=== PATIENT | female | born 1965 | race Caucasian/White ===

== ENCOUNTER → 2019-11-18 | Outpatient (CLI) | payer BC ==
--- NOTE | 2019-11-18 16:16 | US ---
EXAMINATION TYPE: US venous doppler duplex LE RT DATE OF EXAM: 11/18/2019 3:43 PM COMPARISON: NONE CLINICAL HISTORY: R60.0 Localized edema. SIDE PERFORMED: TECHNIQUE: The lower extremity deep venous system is examined utilizing real time linear array sonog neena with graded compression, doppler sonography and color-flow sonography. VESSELS IMAGED: External Iliac Vein (EIV) Common Femoral Vein Deep Femoral Vein Greater Saphenous Vein * Femoral Vein Popliteal Vein Small Saphenous Vein * Proximal Calf Veins (* superficial vessels) There is normal flow, compressibility, vascular waveforms Right Leg: Negative for DVT Soria's cyst measuring 4.7 x 1.8 x 3.0cm IMPRESSION: No evident deep venous arthrosis at or above the right knee. Semimembranosus gastrocnemiu s cyst noted incidentally.
== END | disposition home or self-care (01) ==
LOC: RADUSWWP 15:22
PROVIDERS: ATTEND Family Medicine
DX: R60.0 Localized edema (principal)

== ENCOUNTER 2020-07-15 09:17 | Day surgery (SDC) | payer BC, OTHER ==
[2020-07-14 11:52] VITALS: BMI 21.4
[~2020-07-15 09:17] MED LIST: ACETAMINOPHEN TAB 500 MG TAB PO PRN; LACTATED RINGERS 1,000 ML IV SCH; MELOXICAM 7.5 MG TAB PO PRN; ONDANSETRON 4 MG/2 ML VIAL IVP PRN; Pre Op ABX Message 1 EACH MISC MISCELLANE ONE
[2020-07-15 10:05] VITALS: RESP 16
[2020-07-15] MEDS ORDERED: MIDAZOLAM 2 MG/2 ML VIAL IVP ONE (10:20)
[2020-07-15] MEDS ORDERED: DEXAMETHASONE SOD PHOSPHATE 4 MG/ML 1 ML VIAL IVP ONE (10:20)
[2020-07-15] MEDS ORDERED: MIDAZOLAM 2 MG/2 ML VIAL ONE (10:29)
[2020-07-15] MEDS ORDERED: SUCCINYLCHOLINE CHLORIDE 100 MG/5 ML SYR IV ONE (10:29)
[2020-07-15] MEDS ORDERED: PROPOFOL 10 MG/ML 20 ML VIAL IV ONE (10:29)
[2020-07-15] MEDS ORDERED: GLYCOPYRROLATE 0.2 MG/ML 2 ML VIAL ONE (10:29)
[2020-07-15] MEDS ORDERED: LIDOCAINE 1% INJ 10MG/ML (20 ML MDV) ONE (10:29)
[2020-07-15] MEDS ORDERED: ePHEDrine SULFATE/0.9% NACL/PF 50 MG/5 ML SYRINGE IV ONE (10:29)
[2020-07-15] MEDS ORDERED: fentaNYL (PF) 50 MCG/ML 2 ML AMP ONE (10:29)
[2020-07-15] MEDS ORDERED: BUPIVACAINE (PF) 0.25% 30 ML VIAL INTRAARTIC ONE (11:09)
[2020-07-15 11:31] VITALS: TEMP 97
[2020-07-15] MEDS ORDERED: MEPERIDINE 50 MG/ML SYRINGE IVP ONE ×2 (12:08→12:14)
--- NOTE | 2020-07-15 12:18 | OP ---
OPERATIVE REPORT DATE OF PROCEDURE: 07/15/2020. PREOPERATIVE DIAGNOSIS: Right knee posterior horn medial meniscus tear. POSTOPERATIVE DIAGNOSIS: Right knee posterior horn medial meniscus tear. OPERATION: Right arthroscopic partial medial meniscectomy. SURGEON: Aren Robison MD. ANESTHESIA: General endotracheal. ESTIMATED BLOOD LOSS: Minimal. TOURNIQUET: None. DRAINS: None. COMPLICATIONS: None apparent. DISPOSITION: Postanesthesia care unit. INDICATIONS: Best is a 54-year-old female who injured her right knee. Physical examination and MRI are consistent with tearing of the posterior horn of the medial meniscus. I had a long discussion with her with regard to treatment options. At this point, she does wish to proceed with operative intervention. Risks were explained to the patient which include, but are not limited to risk of infection, nerve damage, bleeding, pain, and a small risk of deep vein thrombosis which could lead to fatal pulmonary embolism. The patient understands these risks and wished to proceed with surgical procedure. EXAMINATION UNDER ANESTHESIA: Range of motion: Right full, left full. Effusion: Right mild, left none. Dmitry: Right normal with good endpoint; left normal with good endpoint. Pivot shift: Right grade 0, left grade 0. Posterior drawer: Right with good endpoint; left normal with good end point. Varus laxity: Right none, left none. Valgus laxity: Right none, left none. External rotation: Right normal, left normal. ARTHROSCOPIC FINDINGS: Suprapatellar pouch was normal. Medial gutter normal. Lateral gutter normal. Patella, grade 1 change in the central aspect of the patella. The trochlea she had a grade 2 change in the central aspect of the trochlea. Medial femoral condyle diffuse grade 2 change. Medial tibial plateau grade 1 change. Medial meniscus complex tear of the posterior horn of the medial meniscus. Lateral femoral condyle normal chondral surfaces. Lateral tibial plateau grade 1 change. Lateral meniscus was normal. Anterior cruciate ligament normal. Posterior cruciate ligament normal. DETAILS OF THE PROCEDURE: The patient identified in preoperative holding area. Surgical site was marked by both the patient and myself. She was given 2 grams of Ancef IV for prophylactic purposes. She was then transported to the operative suite. She was placed supine on the operating room table. A general anesthetic was then administered, dosed per the anesthesia department without apparent complication. Examination under anesthesia was then performed of both knees. The findings are noted as above. Tourniquet was then placed high on the right upper thigh well-padded in preparation for surgery. The tourniquet was not inflated throughout the entire procedure. The patient's right lower extremity was than prepped and draped in usual sterile fashion. Standard surgical pause was undertaken to ensure that we were operating on the correct site and that appropriate preoperative antibiotics had been given. All staff in the room were in agreement and we proceeded. The knee was then insufflated with 120 mL sterile saline solution. This was done to gradually distend the joint. Standard inferolateral portal was then made. A 30-degree arthroscope was inserted into superior pouch. The arthroscopic pump pressure set to 60 mmHg and maintained at that level throughout the entire case. Utilizing an 18-gauge spinal needle topically localize the placement, the inferomedial port was made under direct visualization. A standard diagnostic arthroscopy of the knee was then performed. The findings were noted as above. Attention drawn to the medial compartment. She had a complex tear of the posterior horn of the medial meniscus. It was a radial tear with macerated flap tear component to it as well. This tear was deemed irreparable. The meniscus tear was then debrided with a combination of biters and synovial shaver back to stable tissue. Approximately 50% of the posterior horn of medial meniscus remained intact after debridement. The arthroscope was then placed medial to the posterior cruciate ligament through the notch posteromedial compartment of the knee. The posterior root was carefully inspected. She did have a radial tear that extended to the red-white junction, but the root was intact. At this point in time, no further work was seemed necessary. The knee was thoroughly irrigated and drained with an outflow cannula. The arthroscopic equipment was removed from the knee. The arthroscopic portals were closed with 3-0 nylon interrupted sutures. Sterile compressive dressing was then applied. All sponge and needle counts were deemed correct prior to closure. The patient tolerated the procedure without apparent complication. The tourniquet was not inflated throughout the entire procedure. She was transferred to the recovery room in stable condition. MMODL / IJN: [id number] /
[2020-07-15] MEDS ORDERED: HYDROcodone/APAP 5-325MG 1 EACH TAB ONE (12:55)
[2020-07-15 13:20] VITALS: BP 150/91; PULSE 57
== END 2020-07-15 13:52 | disposition home or self-care (01) ==
LOC: OR 09:17
PROVIDERS: ATTEND Orthopaedic Surgery Sports Medicine
DX: S83.231A Complex tear of medial meniscus, current injury, right knee, initial encounter (principal); M71.21 Synovial cyst of popliteal space [Baker], right knee; M17.11 Unilateral primary osteoarthritis, right knee; I10 Essential (primary) hypertension; F32.9 Major depressive disorder, single episode, unspecified; F17.210 Nicotine dependence, cigarettes, uncomplicated; Z86.69 Personal history of other diseases of the nervous system and sense organs; Z98.890 Other specified postprocedural states; Z86.018 Personal history of other benign neoplasm; Z79.899 Other long term (current) drug therapy; Z79.1 Long term (current) use of non-steroidal anti-inflammatories (NSAID); Z82.49 Family history of ischemic heart disease and other diseases of the circulatory system; X58.XXXA Exposure to other specified factors, initial encounter; Y93.H1 Activity, digging, shoveling and raking
CPT/HCPCS: 29881; J2250; J1100; J2175; J0690; J2405; J2001; J3010; J0330; J2704

== ENCOUNTER → 2020-09-16 | Outpatient (CLI) | payer OTHER ==
--- NOTE | 2020-09-16 11:12 | XR ---
Lumbar spine HISTORY: Low back pain 3 views lumbar spine There is a levoscoliosis centered at L3. Lumbar vertebral bodies show preserved height. Bone minerali zation is reduced. Alignment is maintained. Loss of disc height is present at intervertebral levels L 3-4 and L4-5, L5-S1. There is associated spondylosis. Sclerosis present in the posterior elements of the lower lumbar spine. Dense atherosclerotic vascular calcifications present within the aorta. IMPRESSION: Degenerative disc disease, facet arthropathy, spinal curvature, osteopenia.
== END | disposition home or self-care (01) ==
LOC: RADXRMAIN 09:40
PROVIDERS: ATTEND Family Medicine
DX: M51.36 Other intervertebral disc degeneration, lumbar region (principal); M47.816 Spondylosis without myelopathy or radiculopathy, lumbar region; M43.8X6 Other specified deforming dorsopathies, lumbar region; M85.88 Other specified disorders of bone density and structure, other site
CPT/HCPCS: 72100

== ENCOUNTER → 2020-10-08 | Outpatient (CLI) | payer OTHER | END | disposition home or self-care (01) | LOC: LABWHC1 13:18 | PROVIDERS: ATTEND Psychiatry & Neurology Neurology | DX: G40.009 Localization-related (focal) (partial) idiopathic epilepsy and epileptic syndromes with seizures of localized onset, not intractable, without status epilepticus (principal) | CPT/HCPCS: 36415; 80177 ==

== ENCOUNTER 2022-10-03 13:59 | Observation (INO) | payer OTHER ==
--- NOTE | 2022-10-03 14:34 | ED ---
General Adult HPI - General Source: RN notes reviewed <Lakisha Patterson - Last Filed: 10/03/22 14:33> - General Source: patient, family, RN notes reviewed Limitations: no limitations <Len Jean Baptiste - Last Filed: 10/03/22 16:20> - General Stated complaint: seizure Time Seen by Provider: 10/03/22 14:33 - History of Present Illness Initial comments: 56-year-old female with a past medical history significant for seizures presents to the emergency department with a chief complaint of seizure. Patient reports she had a seizure at approximately 1250 this afternoon. She reports that that she seizure lasted about 30 minutes. She takes Keppra. She did take her medication today (Lakisha Patterson) Patient is a pleasant 66-year-old female presenting to the emergency department following reported seizure. Mother witnessed seizure. This reportedly lasted around 20 minutes. Patient states she does take her Keppra however occasionally misses the evening dose, possibly a quarter of the time. Patient rarely ever misses her morning dose. Patient complains of mild headache and general achiness right now. Patient did feel a little bit confused earlier however that has mostly resolved. Patient did bite her tongue otherwise no trauma. 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 <Lakisha Patterson - Last Filed: 10/03/22 14:33> ROS Other: All systems not noted in ROS Statement are negative. Constitutional: Denies: fever Eyes: Denies: eye pain ENT: Denies: ear pain Respiratory: Denies: cough Cardiovascular: Denies: chest pain Endocrine: Denies: fatigue Gastrointestinal: Denies: abdominal pain Genitourinary: Denies: urgency Neurological: Reports: as per HPI, headache. Denies: weakness <Len Jean Baptiste Last Filed: 10/03/22 16:20> ROS Statement: Those systems with pertinent positive or pertinent negative responses have been documented in the HPI. 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, LYMPH NODE REMOVED FROM ARM AND ARM PIT, Past Anesthesia/Blood Transfusion Reactions: No Reported Reaction, Motion Sickness Smoking Status: Current every day smoker - Past Family History Mother Family Medical History: No Reported History <Lakisha Patterson - Last Filed: 10/03/22 14:33> General Exam <Lakisha Patterson - Last Filed: 10/03/22 14:33> Limitations: no limitations General appearance: alert, in no apparent distress Head exam: Present: atraumatic Eye exam: Present: normal appearance, PERRL, EOMI ENT exam: Present: normal oropharynx Neck exam: Present: normal inspection Respiratory exam: Present: normal lung sounds bilaterally Cardiovascular Exam: Present: regular rate, normal rhythm GI/Abdominal exam: Present: soft. Absent: tenderness Extremities exam: Present: normal inspection Neurological exam: Present: alert, oriented X3, CN II-XII intact. Absent: motor sensory deficit Psychiatric exam: Present: normal affect, normal mood Skin exam: Present: normal color <Len Jean Baptiste Last Filed: 10/03/22 16:20> - General Exam Comments Initial Comments: Visual Physical Exam Vital signs reviewed General: Well-appearing, nontoxic, no acute distress. Head: Normocephalic, atraumatic Eyes: PERRLA, EOMI ENT: Airway patent Chest: Nonlabored breathing Skin: No visual rash, normal skin tone Neuro: Alert and oriented 3 Musculoskeletal: No gross abnormalities (Lakisha Patterson) Course Vital Signs 10/03/22 10/03/22 14:39 15:31 Temperature 98.2 F Pulse Rate 72 58 L Respiratory 20 18 Rate Blood Pressure 179/100 190/105 O2 Sat by Pulse 97 Oximetry EKG Findings - EKG Results: EKG: interpreted by ERMD, sinus rhythm, normal axis, normal QRS, normal ST/T EKG shows: bradycardia <Len Jean Baptiste Last Filed: 10/03/22 16:20> Medical Decision Making - Lab Data Result diagrams: 10/03/22 15:24 10/03/22 15:24 <Len Jean Baptiste - Last Filed: 10/03/22 16:20> - Medical Decision Making Was pt. sent in by a medical professional or institution (, [facility], [facility], urgent care, hospital, or [facility]...) When possible be specific @ -No Did you speak to anyone other than the patient for history (EMS, parent, family, police, friend...)? What history was obtained from this source @ -Family is present and helps right history including duration of seizure and last seizure being around 5 months ago Did you review nursing and triage notes (agree or disagree)? Why? @ -I reviewed and agree with nursing and triage notes Were old charts reviewed (outside hosp., previous admission, EMS record, old EKG, old radiological studies, urgent care reports/EKG's, [facility] records)? Report findings @ -Unable to find recent CT brain Differential Diagnosis (chest pain, altered mental status, abdominal pain women, abdominal pain men, vaginal bleeding, weakness, fever, dyspnea, syncope, head ache, dizziness, GI bleed, back pain, seizure, CVA, palpatations, mental health)? @ -Differential Seizure: Recurrent seizure disorder, febrile seizure, alcohol withdrawal, stimulants, meningitis, encephalitis, intercranial hemorrhage, intracranial tumor, stroke, eclampsia, thyrotoxicosis, hypocalcemia, hyponatremia, hypernatremia, hypomagnesemia, psychogenic, this is not meant to be an all-inclusive list. EKG interpreted by me (3pts min.). @ -As above X-rays interpreted by me (1pt min.). @ -None done CT interpreted by me (1pt min.). @ -Report reviewed U/S interpreted by me (1pt. min.). @ -None done What testing was considered but not performed or refused? (CT, X-rays, U/S, labs)? Why? @ -None What meds were considered but not given or refused? Why? @ -None Did you discuss the management of the patient with other professionals (professionals i.e. [facility], [facility], lab, RT, psych nurse, nursing home social worker, aligning inspector, teacher, helicopter officer, field nurse case manager)? Give summary @ -Case was discussed with Dr. Chavez, who will admit covering Dr. Rebolledo Was smoking cessation discussed for >3mins.? @ -No Was critical care preformed (if so, how long)? @ -No Were there social determinants of health that impacted care today? How? (Homelessness, low income, unemployed, alcoholism, drug addiction, transportation, low edu. Level, literacy, decrease access to med. care, custodial, rehab)? @ -No Was there de-escalation of care discussed even if they declined (Discuss DNR or withdrawal of care, Hospice)? DNR status @ -No What co-morbidities impacted this encounter? (DM, HTN, Smoking, COPD, CAD, Cancer, CVA, ARF, Chemo, Hep., AIDS, mental health diagnosis, sleep apnea, morbid obesity)? @ -None Was patient admitted / discharged? Hospital course, mention meds given and route, prescriptions, significant lab abnormalities, going to OR and other pertinent info. @ -Patient reevaluated and resting comfortably in bed. Patient is provided IV Keppra. Secondary to long duration of seizure patient will be held for neurology evaluation. The level has been drawn however this is a send out Undiagnosed new problem with uncertain prognosis? @ -No Drug Therapy requiring intensive monitoring for toxicity (Heparin, Nitro, Insulin, Cardizem)? @ -No Were any procedures done? @ -No Diagnosis/symptom? @ -Status epileptic Acute, or Chronic, or Acute on Chronic? @ -Acute Uncomplicated (without systemic symptoms) or Complicated (systemic symptoms)? @ -default Side effects of treatment? @ -No Exacerbation, Progression, or Severe Exacerbation? @ -No Poses a threat to life or bodily function? How? (Chest pain, USA, ND, pneumonia, PE, COPD, DKA, ARF, appy, cholecystitis, CVA, Diverticulitis, Homicidal, Suicidal, threat to staff... and all critical care pts) @ -No (Len Jean Baptiste) - Lab Data Lab Results 10/03/22 10/03/22 10/03/22 Range/Units 15:24 15:24 15:24 WBC 5.1 (3.8-10.6) k/uL RBC 5.01 (3.80-5.40) m/uL Hgb 16.3 H (11.4-16.0) gm/dL Hct 49.7 H (34.0-46.0) % MCV 99.1 (80.0-100.0) fL MCH 32.5 (25.0-35.0) pg MCHC 32.8 (31.0-37.0) g/dL RDW 12.6 (11.5-15.5) % Plt Count 299 (150-450) k/uL MPV 7.1 Neutrophils % 79 % Lymphocytes % 13 % Monocytes % 6 % Eosinophils % 1 % Basophils % 1 % Neutrophils # 4.0 (1.3-7.7) k/uL Lymphocytes # 0.7 L (1.0-4.8) k/uL Monocytes # 0.3 (0-1.0) k/uL Eosinophils # 0.0 (0-0.7) k/uL Basophils # 0.0 (0-0.2) k/uL Sodium 135 L (137-145) mmol/L Potassium 4.5 (3.5-5.1) mmol/L Chloride 102 (98-107) mmol/L Carbon Dioxide 28 (22-30) mmol/L Anion Gap 5 mmol/L BUN 11 (7-17) mg/dL Creatinine 0.79 (0.52-1.04) mg/dL Est GFR (CKD-EPI)AfAm >90 (>60 ml/min/1.73 sqM) Est GFR (CKD-EPI)NonAf 85 (>60 ml/min/1.73 sqM) Glucose 107 H (74-99) mg/dL Plasma Lactic Acid Ziyad 0.9 (0.7-2.0) mmol/L Calcium 9.6 (8.4-10.2) mg/dL Total Bilirubin 0.6 (0.2-1.3) mg/dL AST 74 H (14-36) U/L ALT 92 H (4-34) U/L Alkaline Phosphatase 83 (38-126) U/L Total Protein 7.3 (6.3-8.2) g/dL Albumin 4.4 (3.5-5.0) g/dL Disposition <Lakisha Patterson - Last Filed: 10/03/22 14:33> Is patient prescribed a controlled substance at d/c from ED?: No Time of Disposition: 16:20 <Len Jean Baptiste - Last Filed: 10/03/22 16:20> Clinical Impression: Status epilepticus Disposition: ADMITTED IP TO THIS [facility] Instructions (If sedation given, give patient instructions): Seizure/Epilepsy Discharge Instructions & Follow-Up Referrals: Hyun Leblanc MD [Primary Care Provider] - 1-2 days
[2022-10-03] MEDS ORDERED: ACETAMINOPHEN IV (For NPO) 1,000 MG in EMPTY BAG 1 BAG IVPB STA (15:18)
[2022-10-03] MEDS ORDERED: levETIRAcetam IV 1,000 MG in SODIUM CHLORIDE 0.9% 250 ML IVPB ONE (15:18)
[2022-10-03] MEDS ORDERED: levETIRAcetam IV 500 MG/5 ML VIAL IV STA (15:20)
--- NOTE | 2022-10-03 15:36 | CT ---
EXAMINATION TYPE: CT brain madelin cerna con DATE OF EXAM: 10/03/2022 COMPARISON: None HISTORY: 56-year-old female seizure with fall CT DLP: 1381.4 mGycm Automated exposure control for dose reduction was used. Technique: Examination of the head was done in axial plane without intravenous contrast. Coronal and sagittal reconstructions performed. CT of the cervical spine was obtained in axial plane without intravenous injection of contrast mater ial. Coronal and sagittal reformatted images were obtained from the axial views for evaluation of f ractures, spinal alignment and canal. FINDINGS: Head: There is no evidence of acute intracranial hemorrhage, acute ischemic changes, mass, mass-effect, or extra-axial fluid collection. There is no effacement of cerebral sulci or basal subarachnoid cister ns. There is no hydrocephalus. There is no midline shift. Mueller-white matter distinction is preserv ed. Paranasal sinuses and mastoid air cells well pneumatized. Leftward nasal septal deviation. Orbits and globes are intact. Cervical spine: No craniocervical junction abnormality, predental space widening, or prevertebral soft tissue swellin g. Moderate multilevel spondylotic changes present. Bulky anterior endplate spondylosis mid to lower lum bar spine. Posterior disc bulges and disc osteophyte complexes and facet C4-C5, C5-C6, C6-C7 may contribute to m ild to moderate spinal canal stenosis. No acute fracture seen of the cervical spine. Alignment is maintained. Variable mild to moderate bilateral neuroforaminal stenoses. More moderate to severe on the right at C5-C6 and on the left at C6-C7. Visualized upper lung show underlying emphysematous change. Sagittal and coronal reformatted images confirm above findings. COMBINED IMPRESSION: 1. No acute intracranial abnormality seen. 2. No acute fracture or malalignment of the cervical spine. Moderate multilevel spondylotic change as outlined above. 3. COPD in the visualized upper lungs.
[2022-10-03 15:51] LABS: Basophils % (A) 1 %; Eosinophils % (A) 1 %; HCT 49.7 % (34.0-46.0); HGB 16.3 gm/dL (11.4-16.0); Lymphocytes # (A) 0.7 k/uL (1.0-4.8); Lymphocytes % (A) 13 %; MCH 32.5 pg (25.0-35.0); MCHC 32.8 g/dL (31.0-37.0); MCV 99.1 fL (80.0-100.0); Mean Platelet Volume 7.1; Monocytes # (A) 0.3 k/uL (0-1.0); Monocytes % (A) 6 %; Neutrophils % (A) 79 %; Platelet Count 299 k/uL (150-450); RBC 5.01 m/uL (3.80-5.40); RDW 12.6 % (11.5-15.5); WBC 5.1 k/uL (3.8-10.6)
[2022-10-03 16:02] LABS: ALT 92 U/L (4-34); AST 74 U/L (14-36); African American GFR (CKD) >90 (>60 ml/min/1.73 sqM); Albumin 4.4 g/dL (3.5-5.0); Alkaline Phosphatase 83 U/L (38-126); Anion Gap 5 mmol/L; Blood Urea Nitrogen 11 mg/dL (7-17); Calcium 9.6 mg/dL (8.4-10.2); Carbon Dioxide 28 mmol/L (22-30); Chloride 102 mmol/L (98-107); Glucose 107 mg/dL (74-99); Non-African American GFR(CKD) 85 (>60 ml/min/1.73 sqM); Potassium 4.5 mmol/L (3.5-5.1); Sodium 135 mmol/L (137-145); Total Bilirubin 0.6 mg/dL (0.2-1.3); Total Protein 7.3 g/dL (6.3-8.2)
[2022-10-03] MEDS ORDERED: NALOXONE 0.4 MG/ML 1 ML VIAL IV PRN (16:20)
[2022-10-03] MEDS ORDERED: traMADol 50 MG TAB PO PRN (16:20)
[2022-10-03] MEDS ORDERED: ACETAMINOPHEN TAB 325 MG TAB PO PRN (16:20)
[2022-10-03] MEDS ORDERED: LORazepam 2 MG/ML INJ IV PRN (16:22)
[2022-10-03] MEDS: levETIRAcetam 500 MG TAB PO SCH (21:25)
[2022-10-03 23:04] VITALS: RESP 16
[2022-10-04 02:52] VITALS: TEMP 97.8
[2022-10-04] MEDS ORDERED: LEVOTHYROXINE 25 MCG TAB PO SCH (06:30)
[2022-10-04] MEDS: levETIRAcetam 500 MG TAB PO SCH (08:21)
[2022-10-04 08:30] VITALS: BP 175/90; PULSE 56
[2022-10-04] MEDS ORDERED: lisinopriL 10 MG TAB PO SCH (09:00)
[2022-10-04 10:56] LABS: ALT 71 U/L (4-34); AST 50 U/L (14-36); African American GFR (CKD) >90 (>60 ml/min/1.73 sqM); Albumin 3.9 g/dL (3.5-5.0); Albumin/Globulin Ratio 1.4; Alkaline Phosphatase 75 U/L (38-126); Anion Gap 6 mmol/L; Blood Urea Nitrogen 11 mg/dL (7-17); Calcium 8.7 mg/dL (8.4-10.2); Carbon Dioxide 24 mmol/L (22-30); Chloride 103 mmol/L (98-107); Globulin 2.7 g/dL; Glucose 86 mg/dL (74-99); Non-African American GFR(CKD) 87 (>60 ml/min/1.73 sqM); Potassium 4.1 mmol/L (3.5-5.1); Sodium 133 mmol/L (137-145); Total Bilirubin 1.1 mg/dL (0.2-1.3); Total Protein 6.6 g/dL (6.3-8.2)
--- NOTE | 2022-10-04 11:15 | P.HPIM ---
History of Present Illness 56-year-old female presented with complaints of seizure which is basically a chronic activity the whole episode lasted for 15 minutes and patient evidently had been biting. Patient does take At home has not been complaint and has mi ssed many doses of Keppra recently patient XL 50 mg of Keppra twice a day. Patient was evaluated by neurology and they recommended increasing Keppra dose to thousand twice a day. Patient although didn't have any anion gap possibly didn't have any lactic acidosis. Patient appears to have depression for which patient is to follow up with psychiatry as an outpatient. He shouldn't had a history of tumor that was removed in the past. REVIEW OF SYSTEMS: CONSTITUTIONAL: No fever, no malaise, no fatigue. HEENT: No recent visual problems or hearing problems. Denied any sore throat. CARDIOVASCULAR: No chest pain, orthopnea, PND, no palpitations, no syncope. PULMONARY: No shortness of breath, no cough, no hemoptysis. GASTROINTESTINAL: No diarrhea, no nausea, no vomiting, no abdominal pain. NEUROLOGICAL: No headaches, no weakness, no numbness. HEMATOLOGICAL: Denies any bleeding or petechiae. GENITOURINARY: Denies any burning micturition, frequency, or urgency. MUSCULOSKELETAL/RHEUMATOLOGICAL: Denies any joint pain, swelling, or any muscle pain. ENDOCRINE: Denies any polyuria or polydipsia. The rest of the 14-point review of systems is negative. PHYSICAL EXAMINATION: GENERAL: The patient is alert and oriented x3, not in any acute distress. Well developed, well nourished. HEENT: Pupils are round and equally reacting to light. EOMI. No scleral icterus. No conjunctival pallor. Normocephalic, atraumatic. No pharyngeal erythema. No thyromegaly. CARDIOVASCULAR: S1 and S2 present. No murmurs, rubs, or gallops. PULMONARY: Chest is clear to auscultation, no wheezing or crackles. ABDOMEN: Soft, nontender, nondistended, normoactive bowel sounds. No palpable organomegaly. MUSCULOSKELETAL: No joint swelling or deformity. EXTREMITIES: No cyanosis, clubbing, or pedal edema. NEUROLOGICAL: Gross neurological examination did not reveal any focal deficits. SKIN: No rashes. Assessment and plan -Breakthrough seizure due to noncompliance of medications: Neurology evaluated the patient patient dose of Keppra was given here and Neurontin and they recommended increasing the dose of Keppra. -Mild transaminitis no further intervention at this time liver enzymes improved and close to normal now. -Hypertension on lisinopril which will be resumed -Possible depression for which follow with PCP and [facility] as an outpatient -Mild hyponatremia possibly due to seizure After EEG patient will be discharged today Past Medical History Past Medical History: Hypertension Additional Past Medical History / Comment(s): TUMOR ON BRAIN STEM-. 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, LYMPH NODE REMOVED FROM ARM AND ARM PIT, Past Anesthesia/Blood Transfusion Reactions: No Reported Reaction, Motion Sickness Past Psychological History: Anxiety, Depression Smoking Status: Current every day smoker Past Alcohol Use History: Occasional Additional Past Alcohol Use History / Comment(s): STARTED SMOKING AT AGE 16 SMOKES 1PPD Past Drug Use History: Marijuana Additional Drug Use History / Comment(s): SMOKES OCCASIONAL- TO HOLD 24 HOUR PRIOR TO PROCEDURE - Past Family History Mother Family Medical History: No Reported History Medications and Allergies Home Medications Medication Instructions Recorded Confirmed Type lisinopriL [Zestril] 10 mg PO DAILY 07/14/20 10/03/22 History Levothyroxine Sodium [Synthroid] 25 mcg PO DAILY 10/03/22 10/03/22 History levETIRAcetam [Keppra] 1,000 mg PO Q12HR #60 tab 10/04/22 Rx Allergies Allergy/AdvReac Type Severity Reaction Status Date / Time No Known Allergies Allergy Verified 10/03/22 16:13 Physical Exam Vitals: Vital Signs Temp Pulse Pulse Resp BP BP BP 10/04/22 08:00 56 L 16 10/04/22 07:00 97.8 F 56 L 16 175/90 10/04/22 02:36 97.8 F 46 L 16 156/84 10/03/22 22:30 98.1 F 59 L 16 158/84 10/03/22 21:43 57 L 18 10/03/22 21:29 57 L 18 167/86 10/03/22 20:20 70 20 144/89 10/03/22 17:46 65 18 157/95 10/03/22 15:31 58 L 18 190/105 10/03/22 14:39 98.2 F 72 20 179/100 Pulse Ox 10/04/22 08:00 10/04/22 07:00 96 10/04/22 02:36 95 10/03/22 22:30 98 10/03/22 21:43 10/03/22 21:29 96 10/03/22 20:20 10/03/22 17:46 10/03/22 15:31 10/03/22 14:39 97 Intake and Output 10/03/22 10/04/22 10/04/22 22:59 06:59 14:59 Other: Voiding Method Toilet Toilet Toilet # Voids 1 # Bowel Movements 0 Weight 70.307 kg Results CBC & Chem 7: 10/03/22 15:24 10/04/22 09:57 Labs: Abnormal Lab Results - Last 24 Hours (Table) 10/03/22 10/03/22 10/04/22 Range/Units 15:24 15:24 09:57 Hgb 16.3 H (11.4-16.0) gm/dL Hct 49.7 H (34.0-46.0) % Lymphocytes # 0.7 L (1.0-4.8) k/uL Sodium 135 L 133 L (137-145) mmol/L Glucose 107 H (74-99) mg/dL AST 74 H 50 H (14-36) U/L ALT 92 H 71 H (4-34) U/L Thrombosis Risk Factor Assmnt - Choose All That Apply Any of the Below Risk Factors Present?: Yes Each Factor Represents 1 point: Age 41-60 years Other Risk Factors: (Seizures) Thrombosis Risk Factor Assessment Total Risk Factor Score: 1 Thrombosis Risk Factor Assessment Level: Low Risk
--- NOTE | 2022-10-04 11:16 | P.DS ---
Providers Date of admission: 10/03/22 16:20 Attending physician: Osbaldo Chavez Consults: 10/03/22 16:20 Consult Physician Routine Consulting Provider: Vibha Akins Consult Reason/Comments: Status epilepticus Do you want consulting provider notified?: Yes Primary care physician: Hyun [facility] Course: 56-year-old female presented with complaints of seizure which is basically a chronic activity the whole episode lasted for 15 minutes and patient evidently had been biting. Patient does take At home has not been complaint and has missed many doses of Keppra recently patient XL 50 mg of Keppra twice a day. Patient was evaluated by neurology and they recommended increasing Keppra dose to thousand twice a day. Patient although didn't have any anion gap possibly didn't have any lactic acidosis. Patient appears to have depression for which patient is to follow up with psychiatry as an outpatient. He shouldn't had a history of tumor that was removed in the past. REVIEW OF SYSTEMS: CONSTITUTIONAL: No fever, no malaise, no fatigue. HEENT: No recent visual problems or hearing problems. Denied any sore throat. CARDIOVASCULAR: No chest pain, orthopnea, PND, no palpitations, no syncope. PULMONARY: No shortness of breath, no cough, no hemoptysis. GASTROINTESTINAL: No diarrhea, no nausea, no vomiting, no abdominal pain. NEUROLOGICAL: No headaches, no weakness, no numbness. HEMATOLOGICAL: Denies any bleeding or petechiae. GENITOURINARY: Denies any burning micturition, frequency, or urgency. MUSCULOSKELETAL/RHEUMATOLOGICAL: Denies any joint pain, swelling, or any muscle pain. ENDOCRINE: Denies any polyuria or polydipsia. The rest of the 14-point review of systems is negative. PHYSICAL EXAMINATION: GENERAL: The patient is alert and oriented x3, not in any acute distress. Well developed, well nourished. HEENT: Pupils are round and equally reacting to light. EOMI. No scleral icterus. No conjunctival pallor. Normocephalic, atraumatic. No pharyngeal erythema. No thyromegaly. CARDIOVASCULAR: S1 and S2 present. No murmurs, rubs, or gallops. PULMONARY: Chest is clear to auscultation, no wheezing or crackles. ABDOMEN: Soft, nontender, nondistended, normoactive bowel sounds. No palpable organomegaly. MUSCULOSKELETAL: No joint swelling or deformity. EXTREMITIES: No cyanosis, clubbing, or pedal edema. NEUROLOGICAL: Gross neurological examination did not reveal any focal deficits. SKIN: No rashes. Assessment and plan -Breakthrough seizure due to noncompliance of medications: Neurology evaluated the patient patient dose of Keppra was given here and Neurontin and they recommended increasing the dose of Keppra. -Mild transaminitis no further intervention at this time liver enzymes improved and close to normal now. -Hypertension on lisinopril which will be resumed -Possible depression for which follow with PCP and [facility] as an outpatient -Mild hyponatremia possibly due to seizure After EEG patient will be discharged today Plan - Discharge Summary Discharge Rx Participant: No New Discharge Prescriptions: New levETIRAcetam [Keppra] 1,000 mg PO Q12HR #60 tab Discontinued levETIRAcetam [Keppra] 750 mg PO BID No Action lisinopriL [Zestril] 10 mg PO DAILY Levothyroxine Sodium [Synthroid] 25 mcg PO DAILY Discharge Medication List lisinopriL [Zestril] 10 mg PO DAILY 07/14/20 [History] Levothyroxine Sodium [Synthroid] 25 mcg PO DAILY 10/03/22 [History] levETIRAcetam [Keppra] 1,000 mg PO Q12HR #60 tab 10/04/22 [Rx] Follow up Appointment(s)/Referral(s): Hyun Leblanc MD [Primary Care Provider] - 1-2 days Heather Andrade MD [REFERRING] - 10/16/22 11:30 am [facility] [NON-STAFF] - 1 Week Patient Instructions/Handouts: Seizure/Epilepsy Discharge Instructions & Follow-Up Discharge Disposition: HOME SELF-CARE
--- NOTE | 2022-10-04 11:44 | P.CNNES ---
History of Present Illness Consult date: 10/03/22 Requesting physician: Len Jean Baptiste Reason for Consult: Status epilepticus History of Present Illness: Patient is a 56-year-old female, with history of benign brain tumor, seizure disorder, came to the hospital with status epilepticus. Patient's mother and patient's boyfriend were present who provided with a history. 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 Patient did not require any chemotherapy or radiation. About 2 years after the tumor removal, patient had a new onset seizure. Patient was not started on any medication. After 2 more seizures subsequently, she was started on Keppra 500 mg twice a day. Subsequently the dose was increased to 750 mg twice a day after another seizure. Her last seizure was on 04/15/2022. Patient does not want to see the doctors, therefore declined to go to the hospital at that time. Now she presented with the fifth seizure. Patient apparently went to sleep last night. She woke up at 11:30 in the morning, came to the kitchen and then went to bed. She told her mom that she was not feeling well, something was not right. Shortly after she started having hyperventilation, her breathing changed and then she went into is full blown seizure in which she bit her tongue and lost control of urine. Patient says that she bites her tongue every time, but this is the first time that she lost control of urine. Apparently is this seizure lasted for around 20 minutes before it stopped. Patient was brought to the hospital at 1:59 PM today. Vital signs on arrival blood pressure 179/100, which went up to 190/105 and then 157/95. Pulse rate 72 temperature 98.2. Blood test shows normal WBC, hemoglobin 16.3, platelets 299. Sodium 135 potassium 4.5, normal renal functions, AST is mildly elevated 74, ALT 92. Keppra level came back 35(3-60). CT head revealed no acute intracranial process. I personally reviewed CT head, agree with the findings. No acute fracture or malalignment of the cervical spine. Moderate multilevel spondylolytic changes. COPD in the visualized lungs. Patient states that out of 14 doses of Keppra in a week, she may miss 3 doses. Patient states that she did miss last night dose of Keppra. This morning she took Keppra, but shortly after she threw it up. She took a second tablet but shortly after she had a seizure. Patient states that after her tumor or more, she has some times problem with short and long-term memory. Patient has only one time followed up with Dr. Andrade but then stopped seeing the neurologist. Patient smokes one pack per day since age 20. Smokes marijuana every day. Occasionally drinks beer. Review of Systems Constitutional: Denies chills, Denies fever Eyes: bilateral diplopia (Sometimes), denies blurred vision, denies pain Ears: deny: decreased hearing, ear discharge, earache Ears, nose, mouth and throat: Reports headache, Denies sore throat Cardiovascular: Denies chest pain, Denies shortness of breath Respiratory: Denies cough, Denies excessive sputum Gastrointestinal: Reports vomiting, Denies abdominal pain, Denies diarrhea, Denies nausea Genitourinary: Denies dysuria, Denies hematuria Musculoskeletal: Reports low back pain, Reports myalgias, Denies neck pain Integumentary: Denies pruritus, Denies rash Neurological: Reports as per HPI, Reports double vision Psychiatric: Reports anxiety, Reports depression Endocrine: Reports fatigue, Denies weight change Hematologic/Lymphatic: Reports easy bruising, Denies easy bleeding Past Medical History Past Medical History: Hypertension Additional Past Medical History / Comment(s): TUMOR ON BRAIN STEM-. SEIZURES SINCE SURGERY History of Any Multi-Drug Resistant Organisms: None Reported Additional Past Surgical History / Comment(s): BRAIN TUMOR NEAR BRAIN STEM - NON CANCER, LYMPH NODE REMOVED FROM ARM AND ARM PIT, Past Anesthesia/Blood Transfusion Reactions: No Reported Reaction, Motion Sickness Past Psychological History: Anxiety, Depression Smoking Status: Current every day smoker Past Alcohol Use History: Occasional Past Drug Use History: Marijuana - Past Family History Mother Family Medical History: No Reported History Medications and Allergies Home Medications Medication Instructions Recorded Confirmed Type lisinopriL [Zestril] 10 mg PO DAILY 07/14/20 10/03/22 History Levothyroxine Sodium [Synthroid] 25 mcg PO DAILY 10/03/22 10/03/22 History levETIRAcetam [Keppra] 1,000 mg PO Q12HR #60 tab 10/04/22 Rx Allergies Allergy/AdvReac Type Severity Reaction Status Date / Time No Known Allergies Allergy Verified 10/03/22 16:13 Physical Examination - Vital Signs Vital Signs: Vital Signs Temp Pulse Resp BP Pulse Ox 10/03/22 17:46 65 18 157/95 10/03/22 15:31 58 L 18 190/105 10/03/22 14:39 98.2 F 72 20 179/100 97 Intake and Output 10/03/22 10/03/22 10/03/22 06:59 14:59 22:59 Other: Weight 70.307 kg Patient is a middle aged female, who was initially postictal, somnolent, but then wake up during the middle and later part of the evaluation. Patient is alert awake oriented to time place and person. She knows it is September 2022 and that she is in [facility]. Speech and language functions are normal. Patient can name and repeat very well. No aphasia or dysarthria. Attention, concentration and fund of knowledge is adequate. On cranial nerve examination, pupils are equal, round and reacting to light, visual calles are full on confrontation, with no neglect on double simultaneous stimulation. Extraocular muscles are intact with no nystagmus. Face is symmetric, tongue protrudes to the midline. Palatal elevation and sensation normal, hearing and shoulder shrug normal, facial sensation normal. Patient has significant amount of [place] on the right side of her tongue. On muscle strength testing, there is no pronator drift and the strength is normal in arms and legs distally and proximally. Patient did not cooperate well with muscle strength testing because of soreness and tiredness. Deep tendon reflexes are symmetric and plantars downgoing bilaterally. Sensory to touch is equal with no neglect on double simultaneous stimulation. Cerebellar function showed no ataxia for [id number] testing. No dysdiadochokinesia. No ataxia for [id number] testing on either side. Tone and bulk of muscles normal. Gait deferred.. On general examination, there is no carotid bruit or murmur, S1-S2 audible. Chest is clear on consultation. Abdomen is soft nontender. No organomegaly, bowel sounds present. Peripheral pulses are present. No edema. Results - Laboratory Findings CBC and BMP: 10/03/22 15:24 10/04/22 09:57 Abnormal Lab Findings: Abnormal Labs 10/03/22 10/03/22 15:24 15:24 Hgb 16.3 H Hct 49.7 H Lymphocytes # 0.7 L Sodium 135 L Glucose 107 H AST 74 H ALT 92 H Assessment and Plan Assessment: * Seizure disorder, came with breakthrough seizure. Patient's seizure lasted for about 20 minutes. * History of benign brain tumor removed from brainstem in 2018 * Tobacco use * Marijuana use Plan: * Patient is on Keppra 750 mg twice a day. She does miss a dose of Keppra sporadically (around 3 doses a week), which can result in breakthrough seizures. Patient did miss taking Keppra the night prior to her seizure. Patient requesting for a medication that can be given once a day. I would suggest switching the medication as an outpatient when she has established neurologist. Patient has not seen her neurologist for over 2 years, therefore need to establish with a neurologist. * At this point we will increase dose of Keppra to 1000 mg twice a day. * Check EEG in the morning. * Patient and family informed of [place] state law of no driving unless seizure free for 6 months, climbing ladders, operating dangerous machinery or unsupervised swimming. * Patient concerned about importance of compliance with the medication, and abstinence from tobacco and marijuana. * Neurology will follow. Thank you for the consult.
--- NOTE | 2022-10-04 13:29 | EEG ---
ELECTROENCEPHALOGRAM REPORT PREAMBLE: This is a 56-year-old female with seizure disorder. EEG FINDINGS: This is a 21-channel digital EEG recorded with video component, utilizing 10/20 [employer] System with referential and bipolar montages. Background consists of predominantly low-voltage fast-frequency beta activity seen in bihemispheric region. Background seems to be reactive to eye opening and closing. Photic driving response was seen with some flash frequencies. Different stages of sleep were not seen. During later part of the study, occasional left temporal theta and very rare left temporal spikes were seen. No electrographic seizure was recorded. EKG channel showed no obvious arrhythmia. IMPRESSION: This is an abnormal EEG due to: 1. Presence of excessive amount of low-voltage fast-frequency beta activity, suggestive of medication effect. 2. Occasional left temporal spikes, may suggest underlying cortical irritability and tendency for seizure. No electrographic seizure was recorded. MMODL / IJN: [id number] /
== END 2022-10-04 14:18 | disposition home or self-care (01) ==
LOC: EC 13:59 → 6NMEDSUR 16:20
PROVIDERS: ADMIT Internal Medicine; ATTEND Internal Medicine
DX: G40.901 Epilepsy, unspecified, not intractable, with status epilepticus (principal); T42.6X6A Underdosing of other antiepileptic and sedative-hypnotic drugs, initial encounter; Z91.148 Patient's other noncompliance with medication regimen for other reason; E87.1 Hypo-osmolality and hyponatremia; I10 Essential (primary) hypertension; R94.01 Abnormal electroencephalogram [EEG]; R74.01 Elevation of levels of liver transaminase levels; J44.9 Chronic obstructive pulmonary disease, unspecified; M47.819 Spondylosis without myelopathy or radiculopathy, site unspecified; F17.210 Nicotine dependence, cigarettes, uncomplicated; F41.9 Anxiety disorder, unspecified; Z79.890 Hormone replacement therapy; Z79.899 Other long term (current) drug therapy; Z86.011 Personal history of benign neoplasm of the brain
CPT/HCPCS: 96374; 96375; 99285; 36415; 95816; 93005; 80053 ×2; 80177; 83605; 85025; 72125; 70450; G0378 ×2; J2060; J1953; J0131